=== PATIENT | male | born 1955 | race Caucasian/White ===

== ENCOUNTER 2023-11-10 11:56 | Outpatient (REF) | payer MEDICARE, SELFPAY ==
[2023-11-10 13:21] VITALS: BMI 40.6
[2023-11-10 13:22] VITALS: BP 157/83; PULSE 74; RESP 16; TEMP 36.1; O2SAT 96
== END 2023-11-10 11:57 | disposition home or self-care (01) ==
LOC: HO.MS 11:56
PROVIDERS: PCP Internal Medicine; Visit Provider Ophthalmology
PROC: (CPT 66821; principal; 2023-11-10 14:50)
DX: H26.491 Other secondary cataract, right eye (principal)
CPT/HCPCS: 66821